=== PATIENT | male | born 1935 | race Caucasian/White ===

== ENCOUNTER 2017-01-21 12:16 | Inpatient (IN) | payer MEDICARE, OTHER ==
--- NOTE | 2017-01-21 12:36 | EDM.PDOC ---
ED HPI GENERAL MEDICAL PROBLEM - General Chief Complaint: Abdominal Pain Stated Complaint: abdominal pain Time Seen by Provider: 01/21/17 12:28 Source of Information: Reports: Patient History Limitations: Reports: No Limitations, Altered Mental Status - History of Present Illness INITIAL COMMENTS - FREE TEXT/NARRATIVE: Comes to Er complaining of abdominal pain. patient has prostate, and bone cancer, and has been having significant pain for months. Onset: Gradual Duration: Week(s):, Chronic Location: Reports: Chest, Abdomen Quality: Reports: Ache, Dull Severity: Moderate Improves with: Reports: None Worsens with: Reports: None Abdominal Pain Score (Numeric/FACES): 6 - Related Data Allergies Allergy/AdvReac Type Severity Reaction Status Date / Time No Known Allergies Allergy Verified 01/21/17 12:18 Home Meds: Home Meds Aspirin [Halfprin] 81 mg PO DAILY 01/29/14 [History] Cholecalciferol (Vitamin D3) [Vitamin D] 2,000 unit PO DAILY 01/29/14 [History] Clopidogrel Bisulfate [Clopidogrel] 75 mg PO DAILY 01/29/14 [History] Latanoprost [Latanoprost] 1 drop EYEBOTH BEDTIME 01/29/14 [History] Hydrocodone/Acetaminophen [Hydrocodon-Acetaminophn 10-325] 1 - 2 tab PO Q6H PRN 10/21/16 [History] Docusate Sodium [Stool Softener] 100 mg PO DAILY 01/21/17 [History] Morphine Sulfate [Morphine Sulfate ER] 15 mg PO BID 01/21/17 [History] Ondansetron [Zofran] 4 mg PO Q6H PRN 01/21/17 [History] Social & Family History - Tobacco Use Years of Tobacco use: 32 Month Tobacco Last Used: June Second Hand Smoke Exposure: No - Alcohol Use Days Per Week of Alcohol Use: 0 - Recreational Drug Use Recreational Drug Use: No ED ROS GENERAL - Review of Systems Review Of Systems: ROS reveals no pertinent complaints other than HPI. ED EXAM, GI/ABD - Physical Exam Exam: See Below Text/Narrative:: patient is a very thin, pale gentleman who appears very weak. Exam Limited By: No Limitations General Appearance: Alert, WD/WN Nose: Normal Inspection Throat/Mouth: Normal Inspection Head: Atraumatic Neck: Normal Inspection Respiratory/Chest: No Respiratory Distress, Lungs Clear, Normal Breath Sounds Cardiovascular: Normal Peripheral Pulses GI/Abdominal: Soft, Tenderness (Male) Exam: No Hernia, Normal Inspection Rectal (Males) Exam: Normal Exam Back Exam: Normal Inspection Extremities: Normal Inspection, Normal Range of Motion Neurological: Alert, Oriented Psychiatric: Normal Affect Skin Exam: Pallor Course - Vital Signs Last Recorded V/S: Last Vital Signs Temp 98.0 F 01/21/17 12:22 Pulse 78 01/21/17 12:22 Resp 16 01/21/17 12:22 BP 117/58 L 01/21/17 12:22 Pulse Ox 93 L 01/21/17 12:22 - Orders/Labs/Meds Orders: Active Orders 24 hr Category Date Time Status AMYLASE [CHEM] Stat Lab 01/21/17 12:26 Ordered CBC WITH AUTO DIFF [HEME] Stat Lab 01/21/17 12:26 Ordered COMPREHENSIVE METABOLIC PN,CMP [CHEM] Stat Lab 01/21/17 12:26 Ordered LIPASE [REF] Stat Lab 01/21/17 12:26 Ordered MANUAL DIFFERENTIAL QA/NC [HEME] Stat Lab 01/21/17 12:30 Results RED BLOOD CELLS LP [BBK] Routine Lab 01/21/17 12:44 Received TYPE AND SCREEN [BBK] Routine Lab 01/21/17 12:44 Received UA W/MICROSCOPIC [URIN] Stat Lab 01/21/17 12:26 Ordered Labs: Laboratory Tests 01/21/17 Range/Units 12:30 WBC 7.3 (5.0-10.0) 10^3/uL RBC 2.13 L (4.50-6.00) 10^6/uL Hgb 5.9 L* (14.0-18.0) g/dL Hct 20.4 L (40.0-54.0) % MCV 95.8 H (82.0-94.0) fL MCH 27.7 (27.0-32.0) pg MCHC 28.9 L (33.0-38.0) g/dL RDW Coeff of Farrah 23.3 H (11.0-15.0) % Plt Count 296 (150-400) 10^3/uL Add Manual Diff Yes Departure - Departure Time of Disposition: 12:48 (will admit to hospital for severe anemia. patient is A DNR, and has a terminal diagnosis. Admission will be for blood transfusion and paliative care.) Disposition: Admitted As Inpatient 66 Clinical Impression: Metastatic bone cancer, Anemia - Discharge Information Forms: ED Department Discharge - My Orders Last 24 Hours: My Active Orders 01/21/17 12:26 AMYLASE [CHEM] Stat CBC WITH AUTO DIFF [HEME] Stat COMPREHENSIVE METABOLIC PN,CMP [CHEM] Stat LIPASE [REF] Stat UA W/MICROSCOPIC [URIN] Stat 01/21/17 12:30 MANUAL DIFFERENTIAL QA/NC [HEME] Stat 01/21/17 12:44 RED BLOOD CELLS LP [BBK] Routine TYPE AND SCREEN [BBK] Routine - Assessment/Plan Last 24 Hours: My Active Orders 01/21/17 12:26 AMYLASE [CHEM] Stat CBC WITH AUTO DIFF [HEME] Stat COMPREHENSIVE METABOLIC PN,CMP [CHEM] Stat LIPASE [REF] Stat UA W/MICROSCOPIC [URIN] Stat 01/21/17 12:30 MANUAL DIFFERENTIAL QA/NC [HEME] Stat 01/21/17 12:44 RED BLOOD CELLS LP [BBK] Routine TYPE AND SCREEN [BBK] Routine
[2017-01-21] MEDS ORDERED: Ondansetron 4 MG Tab.DIS PO PRN (12:55)
[2017-01-21] MEDS ORDERED: Enoxaparin 30 MG/0.3 ML Syringe SUBCUT SCH (13:00)
--- NOTE | 2017-01-21 13:23 | PCM.PN ---
- General Info Date of Service: 01/21/17 Admission Dx/Problem (Free Text): I spoke at length with the patient and his son about his cancer diagnosis. Patient decided he wanted to be a DNR. Family is aware that patients diagnosis is terminal, but the son states they have not rally talked to the patient about this. Patient will be admitted for blood transfusing and palliative care measures only. Functional Status: Reports: pain controlled - Review of Systems General: Reports: No Symptoms HEENT: Reports: no symptoms Pulmonary: Reports: no symptoms Cardiovascular: Reports: No Symptoms Gastrointestinal: Reports: No symptoms Genitourinary: Reports: burning, pain Musculoskeletal: Reports: no symptoms Skin: Reports: no symptoms Neurological: Reports: No Symptoms - Patient Data Vitals - most recent: Last Vital Signs Temp 98.0 F 01/21/17 12:22 Pulse 78 01/21/17 12:22 Resp 16 01/21/17 12:22 BP 117/58 L 01/21/17 12:22 Pulse Ox 93 L 01/21/17 12:22 Weight - most recent: 110 lb Med Orders - Current: Current Medications Aspirin (Halfprin) 81 mg PO DAILY [facility] Hydromorphone HCl (Dilaudid) 0.5 mg IVPUSH Q2H PRN PRN Reason: Pain (severe 7-10) Latanoprost (Xalatan 0.005% Ophth Soln) 0 ml EYEBOTH BEDTIME [facility] Non-Formulary Medication (Cholecalciferol (Vitamin D3) [Vitamin D3]) 2,000 unit PO DAILY [facility] Ondansetron HCl (Zofran Odt) 4 mg PO Q4H PRN PRN Reason: Nausea Senna/Docusate Sodium (Senna Plus) 1 tab PO BID PRN PRN Reason: Constipation Discontinued Medications Enoxaparin Sodium (Lovenox) 30 mg SUBCUT Q24H [facility] - Problem List Review Problem List Initiated/Reviewed/Updated: Yes - My Orders Last 24 Hours: My Active Orders 01/21/17 20:00 Latanoprost [Xalatan 0.005% Ophth Soln] 0 ml EYEBOTH BEDTIME 01/22/17 08:00 Aspirin [Halfprin] 81 mg PO DAILY Cholecalciferol (Vitamin D3) [Vitamin D3] 2,000 unit PO DAILY
[2017-01-21] MEDS ORDERED: Sodium Chloride 0.9% 250 ML IV SCH (14:15)
[2017-01-21] MEDS: HYDROmorphone 1 MG/ML Syringe IVPUSH PRN (14:30)
[2017-01-21] MEDS: Ciprofloxacin 500 MG Tab PO SCH (18:18)
[2017-01-21] MEDS: Latanoprost 0.005% Ophth Soln 2.5 ML Bottle EYEBOTH SCH (19:45)
[2017-01-22] MEDS: HYDROmorphone 1 MG/ML Syringe IVPUSH PRN ×3 (00:10→23:11)
[2017-01-22] MEDS: Ciprofloxacin 500 MG Tab PO SCH ×2 (07:06→19:11)
[2017-01-22] MEDS: Aspirin 81 MG Tab.EC PO SCH (07:45)
[2017-01-22] MEDS: Non-Formulary Medication 1 Each (Cholecalciferol (Vitamin D3) [Vitamin D3] 2,000 UNIT) PO SCH (07:46)
--- NOTE | 2017-01-22 09:10 | PCM.PN ---
- General Info Date of Service: 01/22/17 Admission Dx/Problem (Free Text): Looks much better this morning. Sitting up in bed, color back in skin. CBC much improved. BBS clear no distress. Nursing states pain has been a issue through the night and will likely continue. I strongly doubt that considering the patients declining physical condition, that his life expectancy is very long with the metastatic bone cancer. The patient is a DNR at this point and end of life issues may need to be addressed with family and patient. Patient appears comfortable at this time and is in no distress. - Review of Systems General: Reports: No Symptoms HEENT: Reports: no symptoms Pulmonary: Reports: no symptoms Cardiovascular: Reports: No Symptoms Gastrointestinal: Reports: No symptoms Genitourinary: Reports: no symptoms Musculoskeletal: Reports: no symptoms - Patient Data Vitals - most recent: Last Vital Signs Temp 97.7 F 01/22/17 03:53 Pulse 71 01/22/17 03:53 Resp 20 01/22/17 03:53 BP 136/83 01/22/17 03:53 Pulse Ox 93 L 01/22/17 03:53 Weight - most recent: 110 lb I&O - last 24 hours: Intake & Output 01/21/17 01/22/17 01/22/17 22:59 06:59 14:59 Intake Total 500 Output Total 2 Balance 500 -2 Lab Results last 24 hrs: Laboratory Results - last 24 hr 01/22/17 01/22/17 Range/Units 07:30 07:30 WBC 7.8 (5.0-10.0) 10^3/uL RBC 3.20 L (4.50-6.00) 10^6/uL Hgb 8.9 L (14.0-18.0) g/dL Hct 29.2 L (40.0-54.0) % MCV 91.3 (82.0-94.0) fL MCH 27.8 (27.0-32.0) pg MCHC 30.5 L (33.0-38.0) g/dL RDW Coeff of Farrah 21.1 H (11.0-15.0) % Plt Count 260 (150-400) 10^3/uL Add Manual Diff Yes Neutrophils % (Manual) 78 (35-85) % Band Neutrophils % 3 (0-5) % Lymphocytes % (Manual) 10 L (21-55) % Monocytes % (Manual) 6 (2-12) % Eosinophils % (Manual) 1 (0-5) % Metamyelocytes % 2 % Absolute Neutrophils 6.32 (1.80-7.00) 10^3/uL Lymphocytes # (Manual) 0.78 L (1.00-4.80) 10^3/uL Monocytes # (Manual) 0.47 (0.00-0.80) 10^3/uL Eosinophils # (Manual) 0.08 (0.00-0.45) 10^3/uL Sodium 144 (136-145) mEq/L Potassium 4.0 (3.5-5.0) mEq/L Chloride 106 (98-106) mEq/L Carbon Dioxide 30 (21-32) mmol/L BUN 20 H (7-18) mg/dL Creatinine 1.2 (0.7-1.3) mg/dL Est Cr Clr Drug Dosing 34.07 mL/min Estimated GFR (MDRD) 58 L (>=60) mL/min Glucose 88 (75-99) mg/dL Calcium 9.4 (8.4-10.1) mg/dL Med Orders - Current: Current Medications Aspirin (Halfprin) 81 mg PO DAILY [facility] Last Admin: 01/22/17 07:45 Dose: 81 mg Ciprofloxacin (Ciprofloxacin Hcl) 500 mg PO 0700,1900 [facility] Stop: 01/28/17 21:00 Last Admin: 01/22/17 07:06 Dose: 500 mg Hydromorphone HCl (Dilaudid) 0.5 mg IVPUSH Q2H PRN PRN Reason: Pain (severe 7-10) Last Admin: 01/22/17 07:56 Dose: 0.5 mg Sodium Chloride (Normal Saline) 250 mls @ 100 mls/hr IV ASDIRECTED [facility] Last Admin: 01/21/17 14:25 Dose: 100 mls/hr Latanoprost (Xalatan 0.005% Ophth Soln) 0 ml EYEBOTH BEDTIME [facility] Last Admin: 01/21/17 19:45 Dose: 1 unit Non-Formulary Medication (Cholecalciferol (Vitamin D3) [Vitamin D3]) 2,000 unit PO DAILY [facility] Last Admin: 01/22/17 07:46 Dose: 2,000 unit Ondansetron HCl (Zofran Odt) 4 mg PO Q4H PRN PRN Reason: Nausea Last Admin: 01/22/17 07:55 Dose: 4 mg Senna/Docusate Sodium (Senna Plus) 1 tab PO BID PRN PRN Reason: Constipation Discontinued Medications Enoxaparin Sodium (Lovenox) 30 mg SUBCUT Q24H [facility] Last Admin: 01/21/17 17:27 Dose: Not Given - Problem List Review Problem List Initiated/Reviewed/Updated: Yes - My Orders Last 24 Hours: My Active Orders 01/21/17 14:15 Sodium Chloride 0.9% [Normal Saline] 250 ml IV ASDIRECTED 01/21/17 17:32 Antiembolic Devices [RC] 1000,2200 MAIKOL Hose [Antiembolic Hose] [OM.PC] Routine 01/21/17 19:00 Ciprofloxacin [Ciprofloxacin HCl] 500 mg PO 0700,1900 01/21/17 20:00 Latanoprost [Xalatan 0.005% Ophth Soln] 0 ml EYEBOTH BEDTIME 01/22/17 08:00 Aspirin [Halfprin] 81 mg PO DAILY Cholecalciferol (Vitamin D3) [Vitamin D3] 2,000 unit PO DAILY 01/23/17 05:00 BASIC METABOLIC PANEL,BMP [CHEM] DAILY CBC WITH AUTO DIFF [HEME] DAILY 01/24/17 05:00 BASIC METABOLIC PANEL,BMP [CHEM] DAILY CBC WITH AUTO DIFF [HEME] DAILY 01/25/17 05:00 BASIC METABOLIC PANEL,BMP [CHEM] DAILY CBC WITH AUTO DIFF [HEME] DAILY
[2017-01-22] MEDS: Acetaminophen/oxyCODONE 325-5 MG Tab PO PRN (19:11)
[2017-01-22] MEDS: Latanoprost 0.005% Ophth Soln 2.5 ML Bottle EYEBOTH SCH (20:48)
[2017-01-23] MEDS: Acetaminophen/oxyCODONE 325-5 MG Tab PO PRN ×4 (02:15→21:45)
[2017-01-23] MEDS: Ciprofloxacin 500 MG Tab PO SCH ×2 (06:42→18:05)
[2017-01-23 07:15] LABS: CHLORIDE,CL 105 mEq/L (98-106); SODIUM,NA 143 mEq/L (136-145)
[2017-01-23] MEDS: Aspirin 81 MG Tab.EC PO SCH (08:13)
[2017-01-23] MEDS: Non-Formulary Medication 1 Each (Cholecalciferol (Vitamin D3) [Vitamin D3] 2,000 UNIT) PO SCH (08:13)
--- NOTE | 2017-01-23 09:53 | PN ---
DATE: 01/23/2017 S: This is an elderly gentleman came in with abdominal pain. I suspect some mild diverticulitis. Also he has metastatic prostate cancer, markedly anemic, transfused 2 units. O: NECK: Supple. CHEST: Clear. CARDIAC: Regular. ABDOMEN: Good with normal bowel sounds. Little tenderness in the left lower quadrant. LABORATORY DATA: Hemoglobin came as 5.9. After 2 units was 9 this morning. Panel-8 looked okay. Urinalysis okay. I had a long discussion with the patient. He wants nothing aggressive done to investigate anemia. I suspect it is from his metastatic prostate cancer. I believe he did have a mild case of diverticulitis resolving. P: IV antibiotics 1 more day. DEON/WESLEY /[id number]
[2017-01-23] MEDS: HYDROmorphone 1 MG/ML Syringe IVPUSH PRN (13:13)
[2017-01-23] MEDS: Latanoprost 0.005% Ophth Soln 2.5 ML Bottle EYEBOTH SCH (19:35)
[2017-01-24] MEDS: HYDROmorphone 1 MG/ML Syringe IVPUSH PRN (01:15)
[2017-01-24] MEDS: Acetaminophen/oxyCODONE 325-5 MG Tab PO PRN (03:38)
[2017-01-24] MEDS: Non-Formulary Medication 1 Each (Cholecalciferol (Vitamin D3) [Vitamin D3] 2,000 UNIT) PO SCH (07:37)
[2017-01-24] MEDS: Aspirin 81 MG Tab.EC PO SCH (07:37)
[2017-01-24] MEDS: Ciprofloxacin 500 MG Tab PO SCH (07:37)
[2017-01-24 07:47] VITALS: BP 116/53
[2017-01-24 07:52] LABS: CHLORIDE,CL 104 mEq/L (98-106); SODIUM,NA 142 mEq/L (136-145)
--- NOTE | 2017-01-25 09:55 | DISCH ---
HISTORY OF PRESENT ILLNESS: Kraig Nevarez is an elderly gentleman who came in with abdominal pain. Discovered he was anemic secondary to his metastatic prostate cancer. I typed and crossed and transfused 2 units, started him on some IV antibiotics at the time of discharge rather than pain from his prostate cancer. He had no further abdominal pains and he felt pretty good. LABORATORY DATA: Lab here in the hospital, admission hemoglobin 5.9, discharged 9. A panel-8 looked good. Urinalysis looked good. Total protein is a little bit low. DISPOSITION: The patient is now discharged home. He will see him back in the clinic in 1 week. Recheck that hemoglobin. DISCHARGE MEDICATIONS: Home medications plus Cipro 500 b.i.d. for 5 days. DISCHARGE DIAGNOSIS: 1. ANEMIA SECONDARY TO METASTATIC PROSTATE CANCER. THE PATIENT WANTS JUST TO BE COMFORTABLE. 2. DIVERTICULITIS. DEON/WESLEY /[id number]
== END 2017-01-24 12:05 | disposition home or self-care (01) | DRG 812 ==
LOC: CC.ED 12:16 → CC.MS 12:56 → UNDOADMIN 13:00
PROVIDERS: ADMIT Nurse Practitioner Family; ATTEND General Practice
PROC: 30233N1 Transfusion of Nonautologous Red Blood Cells into Peripheral Vein, Percutaneous Approach (ICD-10-PCS; principal; 2017-01-21)
DX: D64.9 Anemia, unspecified (principal); K57.92 Diverticulitis of intestine, part unspecified, without perforation or abscess without bleeding; C79.51 Secondary malignant neoplasm of bone; C61 Malignant neoplasm of prostate; Z87.891 Personal history of nicotine dependence; Z66 Do not resuscitate; Z79.82 Long term (current) use of aspirin; Z79.899 Other long term (current) drug therapy; Z51.5 Encounter for palliative care
CPT/HCPCS: 36415; 36430; 80048; 80053; 81001; 82150; 83690; 85025; 86850; 86900; 86901; 86920; 86922; 93005; 99284; A9270-GY; J1170; J7050; P9016